=== PATIENT | male | born 1990 | race Caucasian/White ===

== ENCOUNTER 2020-02-12 08:54 | Emergency (ER) | payer MEDICAID ==
[~2020-02-12] VITALS: Ht 188 cm; Wt 95.5 kg
[2020-02-12 09:03] VITALS: BP 141/77
[2020-02-12 09:58] LABS: COVID AG,FIA SOURCE NASOPHARYNGEAL
== END 2020-02-12 09:27 | disposition home or self-care (01) ==
LOC: EMS 08:57
DX: Z20.828 Contact with and (suspected) exposure to other viral communicable diseases (principal); F17.210 Nicotine dependence, cigarettes, uncomplicated; F12.90 Cannabis use, unspecified, uncomplicated
CPT/HCPCS: 87426; 99283; C9803

== ENCOUNTER 2021-10-14 16:35 | Inpatient (IN) | payer MEDICAID ==
[~2021-10-14] VITALS: Ht 188 cm; Wt 100.0 kg
[2021-10-14] MEDS ORDERED: MORPHINE SULFATE 4 MG/ML SYRINGE IM ONE (17:00)
[2021-10-14] MEDS ORDERED: ONDANSETRON HCL 4 MG/2 ML VIAL IM ONE (17:00)
[2021-10-14 19:08] LABS: BASOPHILS % (AUTO) 0.3 % (0.0-2.0); EOSINOPHILS % (AUTO) 0 % (1.0-6.0); HEMATOCRIT 44.6 % (41-53); HEMOGLOBIN 15.2 g/dL (13.5-17.5); LYMPHOCYTES # (AUTO) 2.3 K/uL (1.0-4.8); LYMPHOCYTES % (AUTO) 17.6 % (22.0-44.0); MEAN CORPUSCULAR HEMOGLOBIN 29.6 pg (26.0-34.0); MEAN CORPUSCULAR VOLUME 87 fL (80-100); MONOCYTES # (AUTO) 0.9 K/uL (0.1-1.0); MONOCYTES % (AUTO) 6.4 % (2.0-9.0); NEUTROPHILS # (AUTO) 10.1 K/uL (1.8-7.7); NEUTROPHILS % (AUTO) 75.7 % (40.0-70.0); PLATELET COUNT (AUTO) 218 K/uL (150-450); RED BLOOD CELL COUNT(AUTO) 5.11 MIL/uL (4.50-5.90); RED CELL DISTRIBUTION WIDTH 13.5 % (11.5-14.5)
[2021-10-14 19:23] LABS: ANION GAP 12 mmol/L (8-16); CALCIUM, TOTAL 9.1 mg/dL (8.8-10.5); CARBON DIOXIDE 25 mmol/L (22-29); CHLORIDE 102 mmol/L (98-107); GLUCOSE,RANDOM 101 mg/dL (70-110); POTASSIUM 3.7 mmol/L (3.5-5.1); SODIUM SERUM 139 mmol/L (136-145); UREA NITROGEN, BLOOD 12 mg/dL (7-18)
[2021-10-14 19:24] LABS: GLOMERULAR FILTR. RATE CALC > 60 mL/min (>60)
[2021-10-14 19:29] LABS: ALANINE AMINOTRANSFERASE 23 U/L (12-78); ALBUMIN 4.4 g/dL (3.4-5.0); ALKALINE PHOSPHATASE 65 U/L (46-116); ASPARTATE AMINOTRANSFERASE 19 U/L (15-37); BILIRUBIN,TOTAL 1.8 mg/dL (0.1-1.0); TOTAL PROTEIN, SERUM 7.6 g/dL (6.4-8.2)
[2021-10-14 20:00] LABS: COVID AG,FIA SOURCE NASAL SWAB
[2021-10-14] MEDS ORDERED: HYDROmorphone 2 MG/ML VIAL IVP PRN (20:45)
[2021-10-14] MEDS ORDERED: FentaNYL CITRATE PF 100 MCG/2 ML VIAL IVP PRN (20:45)
[2021-10-14] MEDS ORDERED: MEPERIDINE-PF 25 MG/ML VIAL IVP PRN (20:45)
[2021-10-14] MEDS ORDERED: RINGERS SOLUTION,LACTATED 1,000 ML IV ONE (20:56)
[2021-10-14] MEDS ORDERED: ONDANSETRON HCL 4 MG/2 ML VIAL IVP PRN (21:00)
[2021-10-14] MEDS ORDERED: 0.9% SODIUM CHLORIDE 10 ML SYRINGE IVP PRN (21:00)
[2021-10-14] MEDS ORDERED: FentaNYL CITRATE PF 100 MCG/2 ML VIAL ONE (21:45)
[2021-10-14 22:30] VITALS: BP 127/72
[2021-10-14] MEDS ORDERED: MORPHINE SULFATE 2 MG/ML SYRINGE IVP PRN (23:00)
[2021-10-14] MEDS ORDERED: OxyCODONE HCL/ACETAMINOPHEN 10-325 MG TABLET PO PRN (23:00)
[2021-10-15 05:37] VITALS: BP 95/65
[2021-10-15 07:55] VITALS: BP 119/58
[2021-10-15] MEDS ORDERED: OXYGEN THERAPY IH SCH (08:00)
[2021-10-15] MEDS ORDERED: LIDOCAINE/PF 2% 5 ML VIAL IM ONE (12:44)
[2021-10-15] MEDS ORDERED: MIDAZOLAM HCL 2 MG/2 ML VIAL IVP ONE (12:44)
[2021-10-15] MEDS ORDERED: ONDANSETRON HCL 4 MG/2 ML VIAL IVP ONE (12:44)
[2021-10-15] MEDS ORDERED: KETOROLAC TROMETHAMINE 60 MG/2 ML VIAL IM ONE (12:44)
[2021-10-15] MEDS ORDERED: FentaNYL CITRATE PF 100 MCG/2 ML VIAL IVP ONE (12:44)
[2021-10-15] MEDS ORDERED: PROPOFOL 1% 20 ML VIAL IVP ONE (12:44)
[2021-10-15] MEDS ORDERED: DEXAMETHASONE SOD PHOS 4 MG/ML VIAL IVP ONE (12:44)
== END 2021-10-15 12:45 | disposition home or self-care (01) | DRG 342 ==
LOC: EMS 16:40 → 6S 21:00
PROVIDERS: ADMIT Hospitalist; ATTEND Hospitalist
PROC: 0PSPXZZ Reposition Right Metacarpal, External Approach (ICD-10-PCS; 2021-10-14)
PROC: 0PSPXZZ Reposition Right Metacarpal, External Approach (ICD-10-PCS; 2021-10-14)
PROC: 0PSPXZZ Reposition Right Metacarpal, External Approach (ICD-10-PCS; principal; 2021-10-14 21:00)
DX: S62.312A Displaced fracture of base of third metacarpal bone, right hand, initial encounter for closed fracture (principal); S62.322B Displaced fracture of shaft of third metacarpal bone, right hand, initial encounter for open fracture; S63.054A Dislocation of other carpometacarpal joint of right hand, initial encounter; W22.01XA Walked into wall, initial encounter; S62.324A Displaced fracture of shaft of fourth metacarpal bone, right hand, initial encounter for closed fracture; Z20.822 Contact with and (suspected) exposure to COVID-19; S62.326A Displaced fracture of shaft of fifth metacarpal bone, right hand, initial encounter for closed fracture; Y92.89 Other specified places as the place of occurrence of the external cause; Z87.891 Personal history of nicotine dependence; Y93.89 Activity, other specified; Y99.8 Other external cause status
CPT/HCPCS: 73200; 80053; 85025; 87081; 99285; J1100; J1885; J2250; J2270; J2405; J2704; J3010; J3490; J7120